=== PATIENT | female | born 2005 | race Caucasian/White ===

== ENCOUNTER 2024-05-23 16:11 | Emergency (ER) | payer OTHER, SELFPAY ==
[2024-05-23 16:15] VITALS: BP 138/85; PULSE 99; RESP 19; TEMP 36.6; O2SAT 98
--- NOTE | 2024-05-23 16:20 | ED.FEMALEGU ---
HPI - Female Genitourinary General Chief complaint: Urogenital-Female Stated complaint: UTI Time Seen by Provider: 05/23/24 16:17 History of Present Illness HPI Narrative: 19-year-old otherwise healthy female presenting to the emergency department for urinary tract infection symptoms. She states she is going more frequently and has had some hematuria for last 2 days. Denies any concerns for STDs, is monogamous with 1 sexual partner, no fever, chills, abdominal pain, flank pain, back pain. Was otherwise in her normal state of health. Related Data Allergies Allergy/AdvReac Type Severity Reaction Status Date / Time No Known Allergies Allergy Verified 05/23/24 16:30 Review of Systems Review of Systems: As reviewed above in HPI Exam Narrative: GENERAL: [Well-appearing, well-nourished, and in no acute distress.] HEAD: [Normocephalic, atraumatic.] EYES: [PERRLA and EOMI.] CHEST: No respiratory distress ABDOMEN: Nondistended, non gravid EXTREMITIES: Normal range of motion. [No edema.] SKIN: Warm, dry, no rash. NEURO: [No focal deficits]. Alert and oriented [x3.] PSYCH: [Normal mood and affect.] Course Vital Signs Vital signs: Vital Signs Temperature 36.6 C 05/23/24 16:15 Pulse Rate 99 05/23/24 16:15 Respiratory Rate 19 05/23/24 16:15 Blood Pressure 138/85 05/23/24 16:15 Pulse Oximetry 98 05/23/24 16:15 Temperature 36.6 C 05/23/24 16:15 Pulse Rate 99 05/23/24 16:15 Respiratory Rate 19 05/23/24 16:15 Blood Pressure 138/85 05/23/24 16:15 Pulse Oximetry 98 05/23/24 16:15 MDM - Female Genitourinary MDM Narrative Medical decision making narrative: 19-year-old otherwise healthy female presenting with UTI symptoms. She states she has had some mild hematuria and urgency/frequency for last few days. Hemodynamically stable, normal vital signs, no systemic features such as fever, chills, back pain, abdominal pain or pelvic pain. Denies any chance of or concerns for STD exposures. Urinalysis and urine test obtained. Negative test, urinalysis shows red blood cells and 2+ blood but no squamous cells or bacteria seen. I discussed with the patient that she likely has some irritation cystitis rather than a true urinary tract infection. She is still inquiring and requesting antibiotics. We will send her home with a short course of Keflex and Pyridium for symptom control and follow-up with primary care provider. Medical Records Attestation: I reviewed the patient's medical records. Lab Data Attestation: I reviewed the patient's lab results. Labs: Lab Results 05/23/24 05/23/24 Range/Units 16:37 16:39 Urine Color Yellow (Yellow) Urine Appearance Clear (Clear) Urine pH 8.0 (5.0-9.0) Ur Specific [place] 1.013 (1.001-1.035) Urine Protein Negative (Negative) mg/dL Urine Glucose (UA) Negative (Negative) mg/dL Urine Ketones Negative (Negative) mg/dL Ur Blood (Man) 2+ H (Negative) Urine Nitrate Negative (Negative) Urine Bilirubin Negative (Negative) Urine Urobilinogen 0.2 (<2.0) mg/dL Leukocyte Esterase Rfl Negative (Negative) EDDIE/UL Urine RBC 3-5 H (0-2) /hpf Urine WBC 0-5 (0-3) /hpf Ur Squamous Epith Cells None seen (Few) /hpf Urine Bacteria None seen /hpf Urine Casts 0-2 POC Urine HCG, Qual Negative (Negative) Discharge Plan Discharge Clinical Impression: Cystitis Patient Disposition: Home, Self-Care Condition: Stable Instructions: Antibiotic Form, Dysuria (ED) Additional Instructions: No bacteria seen your urine aside from some blood and red blood cells. We will treat you for your cystitis symptoms with a short course oral antibiotics and Pyridium. Follow-up with your regular doctor, return with any new or worsening concerns at any time. Patient Language: Kis[place] Prescriptions: New phenazopyridine [Pyridium] 200 mg tablet 200 mg PO TID Qty: 6 0RF cephalexin 500 mg capsule 500 mg PO Q12H 5 Days Qty: 10 0RF Follow-up/Referrals: PHYSICIAN NOT ON STAFF,NONSTAFF [Primary Care Provider] - Time of Disposition: 17:18
[2024-05-23 16:39] LABS: BEDSIDEPREGUCG Negative (Negative)
[2024-05-23 16:57] LABS: Add Urine Microscopic? YES; Appearance Urine Clear (Clear); Bacteria Urine None Seen /hpf; Bilirubin Urine Negative (Negative); Blood Urine 2+ (Negative); Color Urine Yellow (Yellow); Glucose Urine UA Negative (Negative); Ketones Urine Negative (Negative); Leukocyte Esterase Ur Negative LEU/UL (Negative); Nitrate Urine Negative (Negative); Non Pathogenic Casts 0-2; Protein Urine Negative (Negative); Specific Grav Ur 1.013 (1.001-1.035); Squamous Epithelial Cell Urine None Seen /hpf (Few); Urobilinogen Urine 0.2 mg/dL (<2.0); WBC Urine 0-5 /hpf (0-3)
--- OUTSIDE RECORDS SUMMARY | 2024-05-30 07:10 | XMS_ITS | Clinical Summary ---
Author Organization Unknown Medication Medication Sig Dispensed Refills Start Date End Date Status QULIPTA Active * Always verify current medications with the patient.
== END 2024-05-23 17:32 | disposition home or self-care (01) ==
PROVIDERS: Emergency Provider Student in an Organized Health Care Education/Training Program
DX: N30.90 Cystitis, unspecified without hematuria (principal)
CPT/HCPCS: 81001; 81025; 99283